=== PATIENT | female | born 1950 | race Caucasian/White ===

== ENCOUNTER 2017-03-06 11:03 | Emergency (ER) | payer MEDICARE ==
[~2017-03-06] VITALS: Ht 170.2 cm; Wt 88.5 kg
[~2017-03-06 11:03] MED LIST: CLOP75 PO; Cyclobenzaprine5 MG PO; MELO7.5 PO; RANI150 PO; SERT100 PO
[2017-03-06] MEDS ORDERED: ATOR20 PO (11:29)
[2017-03-06] MEDS ORDERED: DEXT30SU PO (11:35)
[2017-03-06] MEDS ORDERED: ALBU90OI INH (11:35)
[2017-03-06] MEDS ORDERED: BENZ100A PO (11:35)
[2017-03-06] MEDS ORDERED: Norco 5-325 Ta1 EACH PO (11:35)
== END 2017-03-06 11:40 | disposition home or self-care (01) ==
LOC: ER 11:03
DX: J06.9 Acute upper respiratory infection, unspecified (principal); Z88.0 Allergy status to penicillin; Z88.2 Allergy status to sulfonamides; Z88.5 Allergy status to narcotic agent; Z79.899 Other long term (current) drug therapy
CPT/HCPCS: 99283

== ENCOUNTER 2017-04-04 11:42 | Emergency (ER) | payer MEDICARE, OTHER ==
[~2017-04-04] VITALS: Ht 170.2 cm; Wt 87.2 kg
[~2017-04-04 11:42] MED LIST changes: +ALBU90OI INH; +ATOR20 PO; +BENZ100A PO; +DEXT30SU PO; +Norco 5-325 Ta1 EACH PO
[2017-04-04] MEDS ORDERED: Keflex500 MG PO (13:03)
== END 2017-04-04 13:09 | disposition home or self-care (01) ==
LOC: ER 11:42
DX: L03.115 Cellulitis of right lower limb (principal); Z88.0 Allergy status to penicillin; Z88.2 Allergy status to sulfonamides; Z88.5 Allergy status to narcotic agent; Z79.899 Other long term (current) drug therapy; E78.5 Hyperlipidemia, unspecified
CPT/HCPCS: 99282

== ENCOUNTER 2017-04-09 17:32 | Emergency (ER) | payer MEDICARE, OTHER ==
[~2017-04-09] VITALS: Ht 170.2 cm; Wt 86.2 kg
[~2017-04-09 17:32] MED LIST changes: +Keflex500 MG PO
[2017-04-09 18:38] LABS: BASOPHILS ABSOLUTE AUTO 0.04 K/mm3 (0.00-0.23); BASOPHILS PERCENT AUTO 1 % (0-2); EOSINOPHILS ABSOLUTE AUTO 0.16 K/mm3 (0.00-0.68); EOSINOPHILS PERCENT AUTO 4 % (0-6); Hematocrit 38.3 % (33.0-51.0); Hemoglobin 12.5 g/dL (11.5-16.0); IMMATURE GRAN ABSOLUTE AUTO 0.01 K/mm3 (0.00-0.10); IMMATURE GRAN PERCENT AUTO 0 % (0-1); LYMPHOCYTES ABSOLUTE AUTO 1.63 K/mm3 (0.84-5.20); LYMPHOCYTES PERCENT AUTO 36 % (21-46); MONOCYTES ABSOLUTE AUTO 0.33 K/mm3 (0.16-1.47); MONOCYTES PERCENT AUTO 7 % (4-13); Mean Corpuscular HGB 31.2 pg (26.0-34.0); Mean Corpuscular HGB Conc 32.6 g/dL (31.5-36.5); Mean Corpuscular Volume 96 fL (80-100); Mean Platelet Volume 10.7 fL (9.1-12.4); NEUTROPHILS ABSOLUTE AUTO 2.36 K/mm3 (1.96-9.15); NEUTROPHILS PERCENT AUTO 52 % (41-73); Platelet Count 167 K/mm3 (150-400); RDW Coefficient Variation 12.5 % (11.7-14.2); RDW Standard Deviation 44.5 fL (35.1-46.3); Red Blood Cell Count 4.01 M/mm3 (3.80-5.20); White Blood Cell Count 4.53 K/mm3 (4.00-11.30)
[2017-04-09 18:57] LABS: Alanine Aminotransfer (ALT/SGP 26 U/L (12-78); Albumin, Blood 3.7 g/dL (3.4-5.0); Albumin/Globulin Ratio 1.1 (0.8-1.8); Alk Phos 61 U/L (50-136); Anion Gap 8 mmol/L (6-16); Aspartate Aminotrans (AST/SGOT 21 U/L (12-37); Bilirubin, Total 0.9 mg/dL (0.1-1.0); Blood Urea Nitrogen 12 mg/dL (8-24); Bun/Creatinine Ratio 16.1 (12.0-20.0); CO2, Blood 25 mmol/L (21-32); Calcium, Blood 8.5 mg/dL (8.5-10.1); Chloride, Blood 110 mmol/L (98-108); Creatinine, Blood 0.74 mg/dL (0.40-1.00); Globulin, Blood 3.3 g/dL (2.2-4.0); Glomerular Filtration Rate >60 (60-); Glucose, Blood 89 mg/dL (70-99); Potassium, Blood 3.8 mmol/L (3.5-5.5); Sodium, Blood 143 mmol/L (136-145)
[2017-04-09] MEDS ORDERED: Vibramycin100 MG PO (19:15)
== END 2017-04-09 20:36 | disposition home or self-care (01) ==
LOC: ER 17:32
PROVIDERS: Physician Assistant
DX: L03.115 Cellulitis of right lower limb (principal); Z88.0 Allergy status to penicillin; Z88.2 Allergy status to sulfonamides; Z88.5 Allergy status to narcotic agent; Z79.899 Other long term (current) drug therapy
CPT/HCPCS: 80053; 85025; 96365; 96366; 99283; J1956

== ENCOUNTER 2017-09-28 17:15 | Emergency (ER) | payer MEDICARE ==
[~2017-09-28] VITALS: Ht 170.2 cm; Wt 82.5 kg
[~2017-09-28 17:15] MED LIST changes: +Vibramycin100 MG PO
[2017-09-28 18:10] LABS: BASOPHILS ABSOLUTE AUTO 0.06 K/mm3 (0.00-0.23); BASOPHILS PERCENT AUTO 1 % (0-2); EOSINOPHILS PERCENT AUTO 2 % (0-6); Hematocrit 37.6 % (33.0-51.0); Hemoglobin 12.9 g/dL (11.5-16.0); IMMATURE GRAN ABSOLUTE AUTO 0.01 K/mm3 (0.00-0.10); IMMATURE GRAN PERCENT AUTO 0 % (0-1); LYMPHOCYTES ABSOLUTE AUTO 1.54 K/mm3 (0.84-5.20); LYMPHOCYTES PERCENT AUTO 30 % (21-46); MONOCYTES ABSOLUTE AUTO 0.46 K/mm3 (0.16-1.47); MONOCYTES PERCENT AUTO 9 % (4-13); Mean Corpuscular HGB 32.9 pg (26.0-34.0); Mean Corpuscular HGB Conc 34.3 g/dL (31.5-36.5); Mean Corpuscular Volume 96 fL (80-100); Mean Platelet Volume 10.7 fL (9.1-12.4); NEUTROPHILS ABSOLUTE AUTO 2.94 K/mm3 (1.96-9.15); NEUTROPHILS PERCENT AUTO 58 % (41-73); Platelet Count 181 K/mm3 (150-400); RDW Coefficient Variation 12.2 % (11.7-14.2); RDW Standard Deviation 42.7 fL (35.1-46.3); Red Blood Cell Count 3.92 M/mm3 (3.80-5.20); White Blood Cell Count 5.11 K/mm3 (4.00-11.30)
[2017-09-28 18:42] LABS: Troponin I <0.015 ng/mL (0.000-0.040)
[2017-09-28 19:20] LABS: Alanine Aminotransfer (ALT/SGP 29 U/L (12-78); Albumin, Blood 3.9 g/dL (3.4-5.0); Albumin/Globulin Ratio 1.1 (0.8-1.8); Alk Phos 56 U/L (50-136); Anion Gap 13 mmol/L (6-16); Aspartate Aminotrans (AST/SGOT 21 U/L (12-37); Bilirubin, Total 0.4 mg/dL (0.1-1.0); Blood Urea Nitrogen 11 mg/dL (8-24); Bun/Creatinine Ratio 15.3 (12.0-20.0); CO2, Blood 18 mmol/L (21-32); Chloride, Blood 111 mmol/L (98-108); Creatinine, Blood 0.72 mg/dL (0.40-1.00); Globulin, Blood 3.5 g/dL (2.2-4.0); Glomerular Filtration Rate >60 (60-); Glucose, Blood 101 mg/dL (70-99); Potassium, Blood 3.1 mmol/L (3.5-5.5); Sodium, Blood 142 mmol/L (136-145); Total Protein, Blood 7.4 g/dL (6.4-8.2)
[2017-09-28] MEDS ORDERED: Pepcid40 MG PO (21:35)
== END 2017-09-28 21:50 | disposition home or self-care (01) ==
LOC: ER 17:15
PROVIDERS: Emergency Medicine
DX: S00.83XA Contusion of other part of head, initial encounter (principal); R10.13 Epigastric pain; R07.9 Chest pain, unspecified; W01.198A Fall on same level from slipping, tripping and stumbling with subsequent striking against other object, initial encounter; Z88.0 Allergy status to penicillin; Z88.2 Allergy status to sulfonamides; Z88.5 Allergy status to narcotic agent; Z79.899 Other long term (current) drug therapy; Z86.73 Personal history of transient ischemic attack (TIA), and cerebral infarction without residual deficits; E78.5 Hyperlipidemia, unspecified
CPT/HCPCS: 36415; 70450; 71046; 80053; 83690; 84484; 85025; 93005; 93010; 96374; 99285-25; J3490; J7120

== ENCOUNTER → 2021-05-12 | Outpatient (CLI) | payer MEDICARE ==
[~2021-05-12] MED LIST changes: +MECL25 PO; +Pepcid40 MG PO
[2021-05-12 16:07] LABS: Source, Urine Clean Catch
[2021-05-12 16:31] LABS: Bilirubin, Urine Neg (Neg); Blood, Urine Neg (Neg); Glucose Qualitative, Urine Neg (Neg); Ketones, Urine Neg (Neg); Leukocyte Esterase, Urine 1+ (Neg); Nitrite, Urine Neg (Neg); Protein, Urine Neg (Neg); Urobilinogen, Urine NORM (Normal)
[2021-05-12 16:42] LABS: Appearance, Urine Clear (Clear); Bacteria Rare /hpf; Color, Urine Pale Yellow (P-Yellow); Red Blood Cells, Urine 0-2 /hpf (0-2); Squamous Epithelial Cells Rare /hpf (Few)
== END | disposition home or self-care (01) ==
LOC: LAB SHORT 15:30
PROVIDERS: Student in an Organized Health Care Education/Training Program
DX: R35.89 Other polyuria (principal)
CPT/HCPCS: 81001; 87086

== ENCOUNTER → 2021-09-29 | Outpatient (CLI) | payer MEDICARE ==
[2021-09-29 17:49] LABS: Source, Urine Clean Catch
[2021-09-29 19:32] LABS: Appearance, Urine Cloudy (Clear); Blood, Urine Neg (Neg); Color, Urine Yellow (P-Yellow); Glucose Qualitative, Urine Neg (Neg); Ketones, Urine 1+ (Neg); Leukocyte Esterase, Urine 1+ (Neg); Nitrite, Urine Pos (Neg); Protein, Urine 1+ (Neg); Specific Gravity, Urine 1.025 (1.003-1.022); Urobilinogen, Urine NORM (Normal)
[2021-09-29 19:52] LABS: Bilirubin, Urine 1+ (Neg)
[2021-09-29 19:56] LABS: Amorphous Heavy (0-Heavy); Bacteria Many /hpf; Calcium Oxalate Crystals Few /hpf; Red Blood Cells, Urine 0-2 /hpf (0-2); Squamous Epithelial Cells Few /hpf (Few)
== END | disposition home or self-care (01) ==
LOC: LAB SHORT 16:33
PROVIDERS: Student in an Organized Health Care Education/Training Program
DX: R35.89 Other polyuria (principal)
CPT/HCPCS: 81001; 87077; 87086; 87186

== ENCOUNTER → 2023-05-15 | Outpatient (CLI) | payer OTHER ==
[2023-05-15 15:50] LABS: BASOPHILS ABSOLUTE AUTO 0.06 K/mm3 (0.00-0.23); BASOPHILS PERCENT AUTO 1 % (0-2); EOSINOPHILS ABSOLUTE AUTO 0.15 K/mm3 (0.00-0.68); EOSINOPHILS PERCENT AUTO 3 % (0-6); Hematocrit 42.2 % (33.0-51.0); Hemoglobin 14.2 g/dL (11.5-16.0); IMMATURE GRAN ABSOLUTE AUTO 0.01 K/mm3 (0.00-0.10); IMMATURE GRAN PERCENT AUTO 0 % (0-1); LYMPHOCYTES ABSOLUTE AUTO 1.68 K/mm3 (0.84-5.20); LYMPHOCYTES PERCENT AUTO 35 % (21-46); MONOCYTES ABSOLUTE AUTO 0.41 K/mm3 (0.16-1.47); MONOCYTES PERCENT AUTO 9 % (4-13); Mean Corpuscular HGB 31.1 pg (26.0-34.0); Mean Corpuscular HGB Conc 33.6 g/dL (31.5-36.5); Mean Corpuscular Volume 92 fL (80-100); Mean Platelet Volume 10.7 fL (9.1-12.4); NEUTROPHILS PERCENT AUTO 52 % (41-73); Platelet Count 173 K/mm3 (150-400); RDW Coefficient Variation 12.6 % (11.7-14.2); RDW Standard Deviation 42.8 fL (35.1-46.3); Red Blood Cell Count 4.57 M/mm3 (3.80-5.20); White Blood Cell Count 4.81 K/mm3 (4.00-11.30)
[2023-05-15 19:24] LABS: Alanine Aminotransfer (ALT/SGP 37 U/L (12-78); Albumin, Blood 4.3 g/dL (3.4-5.0); Albumin/Globulin Ratio 1.1 (0.8-1.8); Alk Phos 58 U/L (50-136); Anion Gap 8 mmol/L (3-11); Aspartate Aminotrans (AST/SGOT 28 U/L (12-37); Blood Urea Nitrogen 13 mg/dL (8-24); CHOL/HDL RATIO 3.8; CO2, Blood 24 mmol/L (21-32); Calcium, Blood 9.7 mg/dL (8.5-10.1); Chloride, Blood 108 mmol/L (98-108); Cholesterol 133 mg/dL (50-200); Globulin, Blood 3.8 g/dL (2.2-4.0); Glucose, Blood 116 mg/dL (70-99); HDL Cholesterol 35 mg/dL (>39); LDL/HDL RATIO 2.1; Low Density Lipoprotein Chol 72 mg/dL (0-110); Potassium, Blood 4.3 mmol/L (3.5-5.5); Sodium, Blood 136 mmol/L (136-145); Total Protein, Blood 8.1 g/dL (6.4-8.2); Triglycerides 131 mg/dL (30-160); Very Low Density Lipoprot Chol 26 mg/dL (6-32)
[2023-05-15 19:32] LABS: Bilirubin, Total 1.4 mg/dL (0.1-1.0); Creatinine, Blood 0.76 mg/dL (0.40-1.00); Glomerular Filtration Rate 83 (60-)
[2023-05-16 17:42] LABS: HIV 1,2 COMBO ANTIGEN/ANTIBODY Negative (Negative)
[2023-05-16 17:45] LABS: HEPATITIS C AB CIA INTERP High Pos (Negative); HEPATITIS C ANTIBODY CIA INDEX >11.00 IV
[2023-05-17 10:52] LABS: HEPATITIS B SURFACE ANTIBODY 24.07 IU/L
[2023-05-17 13:30] LABS: HEPATITIS B SURFACE ANTIGEN Negative (Negative)
[2023-05-17 14:17] LABS: HCV QNT BY NAAT (LOG IU/ML) 6.77; HCV QNT BY NAAT INTERP Detected (Not Detected)
== END ==
LOC: LAB 12:00 → LAB SHORT 12:00
PROVIDERS: Nurse Practitioner Family
DX: G45.9 Transient cerebral ischemic attack, unspecified (principal); I10 Essential (primary) hypertension; F41.1 Generalized anxiety disorder; Z11.59 Encounter for screening for other viral diseases
CPT/HCPCS: 80053; 80061; 84443; 85025; 86803; 87340; 87389; 87522

== ENCOUNTER 2023-12-05 06:24 | Day surgery (SDC) | payer OTHER ==
[2023-12-05] VITALS (18 sets, daily range): BP systolic 90–136; BP diastolic 59–95
[~2023-12-05] VITALS: Ht 169 cm; Wt 80.2 kg
[~2023-12-05 06:24] MED LIST changes: +FAMO40 PO; +FISH PO; +MELATONIN5 M1 PO
[2023-12-05] MEDS ORDERED: CeFAZolin Sodium 2,000 MG in NS 100 ML IV SCH ×2 (06:25→15:45)
[2023-12-05] MEDS ORDERED: Acetaminophen 500 MG Tab PO SCH ×2 (06:25→16:00)
[2023-12-05] MEDS ORDERED: Ropivacaine 0.5% HCl/Pf 123.125 MG,EPINEPHrine HCL 0.25 MG,Ketorolac Tromethamine 15 MG... INFIL SCH (06:25)
[2023-12-05] MEDS ORDERED: OxyCODONE HCL 10 MG TABCR PO SCH (06:25)
[2023-12-05] MEDS ORDERED: Chlorhexidine Mouth Care 15 ML UDC MT SCH (06:25)
[2023-12-05] MEDS ORDERED: Lactated Ringer's 1,000 ML IV SCH ×2 (06:25→09:25)
[2023-12-05] MEDS ORDERED: Tranexamic Acid 100 ML IV SCH (06:33)
[2023-12-05] MEDS ORDERED: FISH OIL 1,0001 EA10 PO (06:57)
[2023-12-05] MEDS ORDERED: EPCLUSA 400 MG1 EAC1 PO (06:58)
--- NOTE | 2023-12-05 07:29 | NUR ---
History, Chart, Medications and Allergies reviewed before start of procedure. Pre-Op teaching done. Pt verbalizes understanding. Patient confirms NPO status and agrees with scheduled surgery. Patient reports completing Chlorhexadine shower X2 prior to admission to hospital. Surgical site prepped with 2% Chlorhexidine cloth wipe. Patient States Post-Procedure ride home has been arranged. Patient's reading glasses transferred to PACU.
[2023-12-05] MEDS ORDERED: propofoL 60 ML IV ONE (07:38)
[2023-12-05] MEDS ORDERED: Glycopyrrolate 0.2 MG/ML 5ML VIAL ONE (08:17)
[2023-12-05] MEDS ORDERED: ePHEDrine Sulfate 50 MG/ML 1ML Injection ONE (08:18)
[2023-12-05] MEDS ORDERED: propofoL 20 ML IV ONE (08:20)
[2023-12-05] MEDS ORDERED: Melatonin 5 MG Tablet PO PRN (09:10)
[2023-12-05] MEDS ORDERED: DiphenhydrAMINE HCL 25 MG Cap PO PRN (09:15)
[2023-12-05] MEDS ORDERED: TraMADol HCl 50 MG Tab PO PRN (09:15)
[2023-12-05] MEDS ORDERED: FLU VACC TS2024-25(6MOS UP)/PF 45 MCG/0.5 ML SYRINGE IM SCH (09:15)
[2023-12-05] MEDS ORDERED: HYDROcodone 5-APAP 325 TAB PO PRN (09:15)
[2023-12-05] MEDS ORDERED: Prochlorperazine Edisylate 10 mg Vial IV PRN (09:20)
[2023-12-05] MEDS ORDERED: Metoclopramide HCl 5MG / ML 2ML Vial IV PRN (09:20)
[2023-12-05] MEDS ORDERED: Ondansetron HCl 2 MG / ML 2ML Vial IV PRN (09:20)
[2023-12-05] MEDS ORDERED: Magnesium Hydroxide Conc 10 ML UDC PO PRN (09:20)
[2023-12-05] MEDS ORDERED: Promethazine HCl 25 MG Tab PO PRN (09:20)
[2023-12-05] MEDS ORDERED: Bisacodyl 10 MG Supp PR PRN (09:20)
[2023-12-05] MEDS ORDERED: HYDROmorphone HCl/Pf 1MG SYR IV PRN (09:25)
--- NOTE | 2023-12-05 10:43 | NUR ---
PT ARRIVED TO THE ROOM AT APPROXIMATELY 1000. PT AWAKE, ORIENTED BUT DROWSY. PT SLIGHTLY FORGETFUL. PT EDUCATED ABOUT CALL LIGHT USE AND TO CALL BEFORE FOR ASSISTANCE WHEN SHE NEEDS TO GET OOB. PT RATES PAIN AT 5/10 AND STATES PAIN IS NOT TOLERABLE, PT PROVIDED WITH PO PAIN MEDICATION AND POLAR PACK IN PLACE. L HIP DRESSING C/D/I. SBP SLIGHTLY LOW. PT ASSISTED TO REPOSITION ONTO HER R SIDE AND REPORTED IMPROVED COMFORT.
[2023-12-05] MEDS ORDERED: Ketorolac Tromethamine 15mg Vial IV SCH (12:00)
--- NOTE | 2023-12-05 16:30 | NUR ---
SHIFT SUMMARY PT IS POD#[address] FROM [facility] [address] DR. PEDRAZA. PT HAS WORKED WITH THERAPY. PAIN MANAGED WITH PO PAIN MEDICATION BUT PT HAD SOME MILD VISUAL HALLUCINATIONS AFTER TAKING NORCO, HALLUCINATIONS HAVE RESOLVED. TRANSITIONED TO ULTRAM FOR PAIN. PT'S SBP HAS BEEN IN THE 90'S, PT ASYMPTOMATIC. ORAL HYDRATION ENCOURAGED AND IV FLUIDS CONTINUED. PT IS A 1 ASSIST FOR TRANSFERS. PT IS TOLERATING PO. FAMILY HAS BEEN AT THE BEDSIDE FOR SUPPORT.
[2023-12-05] MEDS ORDERED: Docusate Sodium 100 MG Cap PO SCH (21:00)
[2023-12-05] MEDS ORDERED: Apixaban 5 MG Tab PO SCH (21:00)
[2023-12-06 04:29] VITALS: BP 106/67
[2023-12-06 04:52] LABS: BASOPHILS ABSOLUTE AUTO 0.04 K/mm3 (0.00-0.23); BASOPHILS PERCENT AUTO 1 % (0-2); EOSINOPHILS ABSOLUTE AUTO 0.05 K/mm3 (0.00-0.68); EOSINOPHILS PERCENT AUTO 1 % (0-6); Hematocrit 32.5 % (33.0-51.0); Hemoglobin 10.9 g/dL (11.5-16.0); IMMATURE GRAN ABSOLUTE AUTO 0.02 K/mm3 (0.00-0.10); IMMATURE GRAN PERCENT AUTO 0 % (0-1); LYMPHOCYTES ABSOLUTE AUTO 1.41 K/mm3 (0.84-5.20); LYMPHOCYTES PERCENT AUTO 19 % (21-46); MONOCYTES PERCENT AUTO 12 % (4-13); Mean Corpuscular HGB 31.1 pg (26.0-34.0); Mean Corpuscular HGB Conc 33.5 g/dL (31.5-36.5); Mean Corpuscular Volume 93 fL (80-100); Mean Platelet Volume 10.7 fL (9.1-12.4); NEUTROPHILS ABSOLUTE AUTO 4.83 K/mm3 (1.96-9.15); NEUTROPHILS PERCENT AUTO 67 % (41-73); Platelet Count 130 K/mm3 (150-400); RDW Coefficient Variation 13.2 % (11.7-14.2); RDW Standard Deviation 44.2 fL (35.1-46.3); Red Blood Cell Count 3.51 M/mm3 (3.80-5.20); White Blood Cell Count 7.25 K/mm3 (4.00-11.30)
[2023-12-06 05:10] LABS: Bun/Creatinine Ratio 14.8 (12.0-20.0); Calcium, Blood 8.8 mg/dL (8.5-10.1); Creatinine, Blood 0.74 mg/dL (0.40-1.00); Potassium, Blood 3.8 mmol/L (3.5-5.5)
--- NOTE | 2023-12-06 05:57 | NUR ---
SHIFT SUMMARY POD 1 [facility] PT RESTED T/O SHIFT. PAIN MANAGED PER EMAR. TOLERATING PO INTAKE. HAD NOT VOIDED ALL NIGHT, PT STATES THIS IS NORMAL. PT IS UP IN THE BATHROOM THIS AM. DRESSING TO L HIP IS C/D/I. DENIES N/T IN LLE. VSS. PLAN TO WORK WITH THERAPY THIS AM AND THEN D/C HOME. NO OTHER CONCERNS AT THIS TIMME, CALL LIGHT WITHIN REACH
[2023-12-06 07:09] VITALS: BP 106/70
--- NOTE | 2023-12-06 08:49 | NUR ---
PT WORKING WITH PHYSICAL THERAPY AT THIS TIME.
[2023-12-06] MEDS ORDERED: TRAM50 PO (08:51)
[2023-12-06] MEDS ORDERED: Atorvastatin 10 MG Tab PO SCH (09:00)
[2023-12-06] MEDS ORDERED: SOFOSBUVIR VELPATASVIR PO SCH (09:00)
[2023-12-06] MEDS ORDERED: Famotidine 20 MG Tab PO SCH (09:00)
[2023-12-06] MEDS ORDERED: Sertraline HCl 100 MG Tab PO SCH (09:00)
--- NOTE | 2023-12-06 12:05 | NUR ---
PT D/C HOME WITH FAMILY/FRIEND. PT JAMES PO INTAKE AND VOIDING PRIOR TO D/C. PT TO F/U WITH [facility] AND CALL WITH ANY CONCERNS. PT SENT HOME WITH EXTRA BANDAGE. ESCORTED TO CAR VIA WC.
== END 2023-12-06 12:10 | disposition home or self-care (01) ==
LOC: ORSCMMR 06:24 → ORD 07:30 → SURS 09:59 → ORSCMMR 12-06 12:10
PROVIDERS: Orthopaedic Surgery
PROC: 0SRB0JZ Replacement of Left Hip Joint with Synthetic Substitute, Open Approach (ICD-10-PCS; principal; 2023-12-05 07:30)
DX: M16.12 Unilateral primary osteoarthritis, left hip (principal); F41.9 Anxiety disorder, unspecified; F32.A Depression, unspecified; I10 Essential (primary) hypertension; E78.5 Hyperlipidemia, unspecified; Z79.899 Other long term (current) drug therapy; Z86.73 Personal history of transient ischemic attack (TIA), and cerebral infarction without residual deficits; Z86.19 Personal history of other infectious and parasitic diseases; Z79.02 Long term (current) use of antithrombotics/antiplatelets
CPT/HCPCS: 36415; 72170; 80048; 82947; 85025; 97110; 97116; 97162; 97530; A6010; A9270; C1776; J0171; J0690; J0735; J1885; J2405; J2704; J2795; J7120

== ENCOUNTER → 2024-05-23 | Outpatient (CLI) | payer MEDICARE ==
[~2024-05-23] MED LIST changes: +EPCLUSA 400 MG1 EAC1 PO; +FISH OIL 1,0001 EA10 PO; +TRAM50 PO
[2024-05-23 12:49] LABS: Source, Urine Clean Catch
[2024-05-23 15:24] LABS: Red Blood Cells, Urine 0-2 /hpf (0-2)
[2024-05-23 15:25] LABS: Bacteria Many /hpf; Squamous Epithelial Cells Rare /hpf (Few)
== END ==
LOC: LAB SHORT 12:47 → LAB 12:47
PROVIDERS: Nurse Practitioner Family
DX: R35.0 Frequency of micturition (principal)
CPT/HCPCS: 81015; 87077; 87086; 87186

== ENCOUNTER → 2024-12-09 | Outpatient (CLI) | payer MEDICARE | LOC: LAB SHORT 11:32 → LAB 11:32 | DX: R82.90 Unspecified abnormal findings in urine (principal) | CPT/HCPCS: 87077; 87086; 87186 ==